=== PATIENT | male | born 1970 | race Two or more races ===

== ENCOUNTER → 2017-11-03 | Outpatient (CLI) | payer OTHER ==
[~2017-11-03] MED LIST: AMOX-CLAV 875-1 EACH PO; KETOCONAZOLE15 GM TP; MUPIROCIN22 GM TOP; TRIAMCINOLONE A15 G3 TP
== END | disposition home or self-care (01) ==
LOC: RAD 12:04
DX: M54.2 Cervicalgia (principal)

== ENCOUNTER 2021-06-07 12:53 | Emergency (ER) | payer OTHER ==
[~2021-06-07] VITALS: Ht 172.7 cm; Wt 77.1 kg
== END 2021-06-07 16:22 ==
LOC: ER 12:53
DX: S30.0XXA Contusion of lower back and pelvis, initial encounter (principal); W19.XXXA Unspecified fall, initial encounter; Y92.013 Bedroom of single-family (private) house as the place of occurrence of the external cause; M54.59 Other low back pain

== ENCOUNTER 2022-01-23 10:26 | Outpatient (CLI) | payer OTHER | END 2022-01-23 10:37 | disposition home or self-care (01) | LOC: RAD 10:26 | DX: M99.01 Segmental and somatic dysfunction of cervical region (principal); M99.02 Segmental and somatic dysfunction of thoracic region; M99.03 Segmental and somatic dysfunction of lumbar region; M99.04 Segmental and somatic dysfunction of sacral region; M99.05 Segmental and somatic dysfunction of pelvic region ==

== ENCOUNTER → 2022-01-26 | Outpatient (CLI) | payer OTHER | END | disposition home or self-care (01) | LOC: SONOGRAMA 10:18 | DX: R35.0 Frequency of micturition (principal) ==

== ENCOUNTER → 2024-02-05 | Emergency (ER) | payer OTHER ==
[~2024-02-05] VITALS: Ht 167.6 cm; Wt 81.6 kg
== END | disposition home or self-care (01) ==
LOC: ER 09:12
DX: R22.42 Localized swelling, mass and lump, left lower limb (principal); T14.8XXA Other injury of unspecified body region, initial encounter